=== PATIENT | female | born 1970 | race Caucasian/White ===

== ENCOUNTER 2016-10-20 07:48 | Observation (INO) | payer OTHER ==
[~2016-10-20] VITALS: Ht 180.3 cm; Wt 96.6 kg
[2016-10-20 09:39] LABS: HEMOGLOBIN 12.5 gm/dl (12.3-15.3); RED BLOOD COUNT 4.09 M/UL (4.00-5.10); WHITE BLOOD COUNT 5.1 K/UL (4.5-11.0)
[2016-10-20] MEDS ORDERED: NEURONTIN 400400 MG PO (22:04)
[2016-10-20] MEDS ORDERED: HYDROXYZINE HCL25 MG PO (22:06)
[2016-10-20] MEDS ORDERED: NORVIR100 M1 PO (22:06)
[2016-10-20] MEDS ORDERED: PREZISTA800 MG PO (22:07)
[2016-10-20] MEDS ORDERED: TRUVADA 200 MG1 EACH PO (22:11)
[2016-10-20] MEDS ORDERED: DULERA 200 MCG8.8 GM INH (22:13)
[2016-10-20] MEDS ORDERED: WELLBUTRIN SR150 M1 PO (22:14)
[2016-10-20] MEDS ORDERED: PAXIL30 MG PO (22:14)
[2016-10-20] MEDS ORDERED: VENTOLIN HFA 66.7 GM INH (22:16)
[2016-10-21 04:49] LABS: HEMOGLOBIN 11.2 gm/dl (12.3-15.3)
[2016-10-21 04:51] LABS: RED BLOOD COUNT 3.66 M/UL (4.00-5.10); WHITE BLOOD COUNT 3.7 K/UL (4.5-11.0)
[2016-10-21 05:25] LABS: BUN/CREATININE RATIO 16 (0-10)
[2016-10-21] MEDS ORDERED: AUGMENTIN TAB875 MG PO (12:58)
[2016-10-21] MEDS ORDERED: PERCOCET 5-3251 EACH PO (13:00)
[2016-10-21] MEDS ORDERED: PERCOCET 7.5-31 EACH PO (16:29)
== END 2016-10-21 20:00 | disposition home or self-care (01) ==
LOC: ER1 07:48 → M/S 10:00
PROVIDERS: Physician Assistant; ADMIT Orthopaedic Surgery
DX: S61.255A Open bite of left ring finger without damage to nail, initial encounter (principal); L03.012 Cellulitis of left finger; B20 Human immunodeficiency virus [HIV] disease; J44.9 Chronic obstructive pulmonary disease, unspecified; F17.210 Nicotine dependence, cigarettes, uncomplicated; Z86.19 Personal history of other infectious and parasitic diseases; Z79.899 Other long term (current) drug therapy; Z98.51 Tubal ligation status; W54.0XXA Bitten by dog, initial encounter
CPT/HCPCS: 36415; 73130; 80048; 85025; 86140; 87040; 87070; 87077; 87186; 87205; 96365; 96375; 99284; G0378; J0295; J2270; J2405; J7050